=== PATIENT | male | born 1950 | race Caucasian/White ===

== ENCOUNTER 2018-09-13 08:37 | Day surgery (SDC) | payer MEDICARE, BC ==
[~2018-09-13] VITALS: Ht 185.4 cm; Wt 105.6 kg
[~2018-09-13 08:37] MED LIST: BACITRACIN OINT 500U/GM, 15 GM ONE; DIGO250T PO; EPINEPHRINE TOPICAL SOLN 1 MG/ML, 30ML ONE; FLUORESCEIN SODIUM 500 MG/5 ML ONE; LIDOCAINE 1%-EPI 1:100K, 20ML ONE; METO-93 PO; OXYMETAZOLINE NASAL SPRAY 0.05%, 15ML ONE; SIMV40TA3 PO
[2018-09-13] MEDS ORDERED: FENTANYL PF 250 MCG/5ML ONE (08:55)
[2018-09-13 09:12] VITALS: BP 132/85
[2018-09-13] MEDS ORDERED: LACTATED RINGERS 1,000 ML IV SCH (09:15)
[2018-09-13] MEDS ORDERED: FLUT1DIS3 INH (09:18)
[2018-09-13] MEDS ORDERED: BECL8.7H INH (09:18)
[2018-09-13 09:52] LABS: ALANINE AMINOTRANSFERASE 34 U/L (12-78); ALBUMIN 3.9 g/dL (3.4-5.0); ANION GAP 5 mmol/L (5-15); CALCIUM 9.3 mg/dL (8.5-10.1); CHLORIDE 107 mmol/L (98-107); CREATININE 0.94 mg/dL (0.7-1.3)
[2018-09-13 09:54] LABS: ALKALINE PHOSPHATASE 80 U/L (45-117); BILIRUBIN,TOTAL 1.3 mg/dL (0.2-1.0); TOTAL PROTEIN 7.3 g/dL (6.4-8.2)
[2018-09-13] MEDS ORDERED: EPHEDRINE 50 MG/ML, 1ML ONE (10:42)
[2018-09-13] MEDS ORDERED: PROPOFOL 10 MG/ML, 20ML ONE ×2 (11:13→11:14)
[2018-09-13] MEDS ORDERED: SUCCINYLCHOLINE 20 MG/ML, 10ML ONE (11:13)
[2018-09-13] MEDS ORDERED: ONDANSETRON 2MG/ML, 2ML ONE (11:14)
[2018-09-13] MEDS ORDERED: KETOROLAC 30 MG/1 ML ONE (11:14)
[2018-09-13] MEDS ORDERED: CEFAZOLIN 1,000 MG ONE ×3 (11:14)
[2018-09-13] MEDS ORDERED: PHENYLEPHRINE 10 MG/ML ONE (11:14)
[2018-09-13] MEDS ORDERED: DEXAMETHASONE 4 MG/ML, 1ML ONE ×2 (11:14)
[2018-09-13] MEDS ORDERED: FENTANYL PF 100 MCG/2ML IV PRN (12:30)
[2018-09-13] MEDS ORDERED: ACETAMINOPHEN 325 MG TABLET PO PRN (12:30)
[2018-09-13] MEDS ORDERED: OXYcodone 5 MG/5 ML ORAL.SOL UDC PO PRN (12:30)
[2018-09-13] MEDS ORDERED: PROMETHAZINE 25 MG/ML, 1ML IV PRN (12:30)
[2018-09-13] MEDS ORDERED: ACETAMINOPHEN 325 MG TABLET ONE (13:47)
== END 2018-09-13 15:35 | disposition home or self-care (01) ==
LOC: OUT 08:37 → EDBD 09:30 → OUT 15:35
PROVIDERS: ATTEND Otolaryngology
DX: J34.2 Deviated nasal septum (principal); J32.2 Chronic ethmoidal sinusitis; J32.0 Chronic maxillary sinusitis; J33.8 Other polyp of sinus; J33.9 Nasal polyp, unspecified; K21.9 Gastro-esophageal reflux disease without esophagitis; I48.91 Unspecified atrial fibrillation; Z79.82 Long term (current) use of aspirin
CPT/HCPCS: 30520; 31253; 31257; 31267; 36415; 61782; 80053; 88304; 88311; 93005; J0330; J0690; J1100; J1885; J2370; J2405; J2704; J3010; J3490; J7120